=== PATIENT | female | born 1985 | race Caucasian/White ===

== ENCOUNTER → 2024-04-14 07:30 | Outpatient (REF) | payer OTHER, SELFPAY | LOC: WDC 07:30 | PROVIDERS: ATTENDING PHYSICIAN Family Medicine | DX: Z12.31 Encounter for screening mammogram for malignant neoplasm of breast (principal) | CPT/HCPCS: 77063; 77067 ==

== ENCOUNTER → 2025-05-10 18:22 | Outpatient (REF) | payer OTHER, SELFPAY | LOC: WDC 18:22 | PROVIDERS: ATTENDING PHYSICIAN Nurse Practitioner Adult Health | DX: Z12.31 Encounter for screening mammogram for malignant neoplasm of breast (principal) | CPT/HCPCS: 77063; 77067 ==